=== PATIENT | female | born 1995 | race Caucasian/White ===

== ENCOUNTER 2025-06-28 14:06 | Emergency (ER) | payer BC ==
[~2025-06-28] VITALS: Ht 177.8 cm; Wt 82.2 kg
[2025-06-28 14:42] LABS: LEUKOCYTE ESTERASE ,URINE NEGATIVE (Neg); NITRITES, URINE NEGATIVE (Neg); OCCULT BLOOD,URINE MODERATE (Neg)
[2025-06-28 14:45] LABS: URINE HCG NEGATIVE (NEG)
[2025-06-28 14:52] LABS: UA COLLECTION TYPE CLN CATCH MIDSTREAM
[2025-06-28 14:54] LABS: MEAN PLATELET VOLUME 7.7 FL (7.4-10.4); RED CELL DISTRIBUTION WIDTH 12.8 % (11.5-14.5)
[2025-06-28 14:54] LABS: SQUAMOUS EPITHELIAL CELL,UR MODERATE /LPF (FEW)
[2025-06-28 15:12] LABS: CREATININE 0.69 MG/DL (0.40-0.90); TOTAL CARBON DIOXIDE 28.1 MMOL/L (24-32); eCRCL 128 ML/MIN; eGFR > 90 ML/MIN
--- NOTE | 2025-06-28 16:08 | Physician Documentation ---
History of Present Illness ~ Chief Complaint: Flank Pain Stated Complaint: POST-SURGERY COMPLICATIONS Time Seen by MD: 18:26 HPI This 29-year-old female presents with two days of right flank pain and continued abdominal discomfort, patient reports laparoscopic surgery six days prior for endometriosis and reports Quinonez until two days ago. Patient reports no fevers. She states that the pain has been constant in his located in the right side of her abdomen near the incision site but also radiates to her right flank. Pain test to fluctuating intensity and worsens when she lays flat on her back and improves when she sits up. Reports that it hurts when she urinates not like a burning sensation however it feels like her bladder is painful when she does this. She has noticed that her urine is very cloudy and slightly thicker and darker than usual. She has also been very nauseated and has vomited a couple of times. She has been taking her Zofran and Tylenol, ibuprofen as well as Palouse that were prescribed to her after the surgery. No reports of any fevers, chills or any other associated symptoms. Medication Reconciliation Allergies: Coded Allergies: adhesive (Verified Allergy, Unknown, 06/28/25) iodine (Verified Allergy, Unknown, 06/28/25) latex (Verified Allergy, Unknown, 06/28/25) morphine (Verified Allergy, Unknown, 06/28/25) Past Medical History Past Surgical History: abdominal surgery Review of Systems All Other Systems at this time: Reviewed and Negative ROS As stated above in the HPI, otherwise all systems are reviewed and negative. Physical Exam Vital Signs: Temperature: 98.5, Source: Temporal, Heart Rate: 98, Respiratory Rate: 16, BP: 118/75, Pulse Oximetry: 99, Weight: 82.200 Oxygen Flow Rate: 0 Physical Exam I have reviewed the triage vitals. CONST: Well developed and well nourished. In no acute distress HENT: Head Atraumatic EYES: Pupils are equal, round and reactive to light. Normal conjunctiva NECK: Normal range of motion. Supple. CARDIO: Normal rate and regular rhythm. No murmurs, rubs, or gallops. S1, S2. PULM/CHEST: No respiratory distress. Lungs clear to auscultation. No wheeze ABD: Soft. Incision sites look clean with no signs of infection. There is some slight tenderness to palpation over the right lower quadrant. Nondistended. Bowel sounds normal. No guarding. A right-sided CVA tenderness. MSK: No edema. No deformity. NEURO: Alert and oriented to person, place and time. Moving all extremities SKIN: Warm and dry. PSYCH: Normal mood and affect. Good eye contact. Progress Results/Orders Results/Orders Orders - LUDWIG SHI MD Ct Abdomen Pelvis (06/28/25 18:45) Completed Orders - LUDWIG SHI MD Ct Abdomen Pelvis (06/28/25 18:45) Vital Signs 06/28/25 06/28/25 06/28/25 14:14 18:42 19:39 Temp 98.5 98.1 Pulse 98 91 Resp 16 14 B/P (MAP) 118/75 114/69 (84) Pulse Ox 99 99 O2 Flow Rate 0 0 Laboratory Tests Test 06/28/25 14:20 06/28/25 14:43 Urine Specimen Description Cln catch midstream Urine Color Yellow Urine Clarity Clear Urine pH 6.0 Urine Specific [place] 1.025 Urine Protein Negative Urine Glucose (UA) Negative Urine Ketones Negative Urine Occult Blood Moderate H Urine Nitrite Negative Urine Bilirubin Negative Urine Urobilinogen 0.2 Urine Leukocyte Esterase Negative Urine RBC 20-50 Urine WBC 0-4 Urine Squamous Epithelial Cells Moderate Urine Transitional Epithelial Cells Few Urine Bacteria 1+ Urine Culture Indicated Not ind Volume Urine Centrifuged 10 ml Urine HCG, Qualitative Negative Urine Comment White Blood Count 8.2 Red Blood Count 4.58 Hemoglobin 13.9 Hematocrit 40.4 Mean Corpuscular Volume 88.3 Mean Corpuscular Hemoglobin 30.5 Mean Corpuscular Hemoglobin Concent 34.5 Red Cell Distribution Width 12.8 Platelet Count 285 Mean Platelet Volume 7.7 Neutrophils (%) (Auto) 66.1 Lymphocytes (%) (Auto) 24.3 Monocytes (%) (Auto) 7.4 Eosinophils (%) (Auto) 1.8 Basophils (%) (Auto) 0.4 Neutrophils # (Auto) 5.4 Lymphocytes # (Auto) 2.0 Monocytes # (Auto) 0.6 Eosinophils # (Auto) 0.1 Basophils # (Auto) 0.0 CBC Comment Sodium Level 138 Potassium Level 3.8 Chloride Level 103 Carbon Dioxide Level 28.1 Anion Gap 7 L Blood Urea Nitrogen 12 Creatinine 0.69 Estimated GFR/1.73 m2 > 90 BUN/Creatinine Ratio 17.4 Glucose Level 100 Calcium Level 9.4 Total Bilirubin 0.2 Aspartate Amino Transf (AST/SGOT) 17 Alanine Aminotransferase (ALT/SGPT) 29 Alkaline Phosphatase 67 Total Protein 7.9 Albumin 4.4 Globulin 3.5 Albumin/Globulin Ratio 1.3 Lipase 19 Chemistry Comments EKG/XRAY/CT/US/VASC/MRI CT : Impression ED physician read: There is a 1-2 mm stone in the distal ureter near the UVJ EXAM: CT CT ABDOMEN PELVIS INDICATION: right flank pain- r/o stones TECHNIQUE: Volumetric multidetector CT images of the abdomen and pelvis were obtained without contrast. All CT scans at this facility use dose modulation, iterative reconstruction, and/or weight based dosing when appropriate to reduce radiation dose to as low as reasonably achievable. COMPARISON: None FINDINGS: [LOWER CHEST]: The partially visualized lung bases are clear without a pleural effusion. The cardiac size is normal without pericardial effusion. [LIVER]: Normal hepatic size without suspicious focal lesion. [GALLBLADDER AND BILIARY TREE]: No cholelithiasis. [SPLEEN]: Unremarkable. [PANCREAS]: Unremarkable. [ADRENAL GLANDS]: Unremarkable [KIDNEYS]: No hydronephrosis. No nephroureterolithiasis. No suspicious focal lesion. [BLADDER]: Unremarkable for the degree distention. [REPRODUCTIVE ORGANS]: IUD in place. Unremarkable. [BOWEL/MESENTERY]: Stomach is normal. Mild stool burden primarily in the ascending colon correlate for constipation. No CT evidence of bowel obstruction. [ASCITES]: Absent [LYMPHADENOPATHY]: No pathologically enlarged lymph nodes by CT size criteria [VASCULATURE]: No aneurysmal dilatation. [ABDOMINAL WALL]: Unremarkable. [MUSCULOSKELETAL]: No acute fracture or aggressive focal osseous lesion. Mult ifocal degenerative change of the visualized spine. [OTHER]: Normal appendix. IMPRESSION: 1. No hydronephrosis or nephroureterolithiasis. 2. Mild stool burden in the ascending colon correlate for constipation. Medical Decision Making Findings MSE performed in triage and patient returned to ED lobby by nursing staff to await available ED room Diff Dx GI Bleed:Consideration: Include: Other Diff Dx Pain:Considerations: Include: Urolithiasis Diff Dx N/V/D:Considerations: Include: Appendicitis, Bowel obstruction, Dehydration, Urolithiasis, Urinary obstruction Diff Dx Rectal:Considerations: Include: UTI, Other Additional Comments This is a 29-year-old female presenting for right flank pain secondary to a ureteral stone. CT of the abdomen and pelvis indicated a 1-2 mm stone in the distal ureter near the UVJ. I noticed this on my own read. This was not mentioned in the radiology result. This would also fit the clinical present ation of the patient. The remainder of the workup including of the lab work is unremarkable. The patient is stable as her vitals are normal and she clinically is not in any severe pain at this time. Patient already has pain medication at home-ibuprofen and Palouse. She also has ondansetron as well as Flomax. I advised the patient that she should take the Flomax for the next several days and also ensure she is drinking plenty of fluids. I recommended to her that she monitor for passage of the stone and if she is able to obtain it to take it to her doctor said that they consented to the lab for stone analysis. Patient is stable and safe for discharge home at this time. All labs and imaging reviewed by myself. All chronic medical conditions and social determinants of health were considered. She is to follow up with her primary care physician in the next 2-5 days as well as with her urologist. Return to the ED with any acutely worsening symptoms. Departure Disposition: 01 HOME / SELF CARE / HOMELESS Impression: Primary Impression: Ureteral calculus, right Condition: Improved Discharge Instructions: Kidney Stones Additional Instructions: Monitor her symptoms for improvement and resolution. Please take your Flomax for the next several days. Continue with your ibuprofen and Palouse as needed for pain control. Continue with ondansetron as needed for nausea. Ensure you are drinking plenty of fluids and monitor for passage of the stone. If you are able to obtain the stone take it to your doctor for lab analysis. Return to the ED with any acutely worsening symptoms. Referrals: NO PRIMARY CARE PROVIDER (PCP) Signature Scribe Signature: 1 Attestation: The note accurately reflects work and decisions made by me.Ludwig Fernando MD 06/28/25 19:58 CHIKI [place] Jun 28, 2025 16:08 LUDWIG SHI MD Jun 28, 2025 18:43
[2025-06-28 18:42] VITALS: TEMP 98.1
--- NOTE | 2025-06-28 19:19 | RADIOLOGY REPORT ---
EXAM: CT CT ABDOMEN PELVIS INDICATION: right flank pain- r/o stones TECHNIQUE: Volumetric multidetector CT images of the abdomen and pelvis were obtained without contrast. All CT scans at this facility use dose modulation, iterative reconstruction, and/or weight based dosing when appropriate to reduce radiation dose to as low as reasonably achievable. COMPARISON: None FINDINGS: [LOWER CHEST]: The partially visualized lung bases are clear without a pleural effusion. The cardiac size is normal without pericardial effusion. [LIVER]: Normal hepatic size without suspicious focal lesion. [GALLBLADDER AND BILIARY TREE]: No cholelithiasis. [SPLEEN]: Unremarkable. [PANCREAS]: Unremarkable. [ADRENAL GLANDS]: Unremarkable [KIDNEYS]: No hydronephrosis. No nephroureterolithiasis. No suspicious focal lesion. [BLADDER]: Unremarkable for the degree distention. [REPRODUCTIVE ORGANS]: IUD in place. Unremarkable. [BOWEL/MESENTERY]: Stomach is normal. Mild stool burden primarily in the ascending colon correlate for constipation. No CT evidence of bowel obstruction. [ASCITES]: Absent [LYMPHADENOPATHY]: No pathologically enlarged lymph nodes by CT size criteria [VASCULATURE]: No aneurysmal dilatation. [ABDOMINAL WALL]: Unremarkable. [MUSCULOSKELETAL]: No acute fracture or aggressive focal osseous lesion. Multifocal degenerative change of the visualized spine. [OTHER]: Normal appendix. IMPRESSION: 1. No hydronephrosis or nephroureterolithiasis. 2. Mild stool burden in the ascending colon correlate for constipation.
[2025-06-28 20:19] VITALS: BP 106/58; PULSE 70; RESP 18; O2SAT 98
== END 2025-06-28 20:22 | disposition home or self-care (01) ==
LOC: ER 14:07
DX: N20.1 Calculus of ureter (principal); Z91.048 Other nonmedicinal substance allergy status; Z91.040 Latex allergy status; Z88.5 Allergy status to narcotic agent; Z88.8 Allergy status to other drugs, medicaments and biological substances
CPT/HCPCS: 36415; 74176; 80053; 81001; 81025; 83690; 85025; 99284